=== PATIENT | female | born 1960 | race Two or more races ===

== ENCOUNTER 2020-05-28 03:04 | Inpatient (IN) | payer OTHER ==
[~2020-05-28] VITALS: Ht 160 cm; Wt 185.0 kg
[2020-05-28] MEDS ORDERED: TRIUMEQ TABLET1 EACH (03:16)
[2020-05-28] MEDS ORDERED: LEVOTHYROXINE25 MC2 (03:16)
[2020-05-28] MEDS ORDERED: LIPITOR40 M1 ×2 (03:16→03:17)
[2020-05-28] MEDS ORDERED: NEURONTIN800 MG (03:17)
[2020-05-28] MEDS ORDERED: SINGULAIR4 M1 (03:17)
--- NOTE | 2020-05-28 03:37 | NUR ---
SE RECIBE PTE ALERTA Y ORIENTADA POR SANA. PT REFIERE TENER CELULITIS EN AMBAS PIERNAS DESDE HACE 3 SEMANAS. PTE INDICA JONO ESTADO HOSPITALIZADA DESDE EL [place] Y JONO EXONERADO EN LA TARDE DE EUGENIE. SE OBSERVA A PTE CON POBRE ASEO PERSONAL, MAL OLOR CORPORAL Y PTE VERVALIZA HABERSE ORINADO EN JONI PANTALONES.
--- NOTE | 2020-05-28 05:21 | NUR ---
SE RECIBE FEMINA ALERTA Y ORIENTADA POR SANA ESFERAS, EN JANET CON BARANDAS SEGURAS Y ELEVADAS. SE MARIAH MUESTRAS DE LABORATORIO ORDENADAS. SE CANALIZA CON AREA DE VENOPUNCION MARK DE EDEMA O ENROJECIMIENTO. SE CANALIZA CON AREA DE VENOPUNCION MARK DE EDEMA O ENROJECIMIENTO. SE ADMINISTRAN MEDICAMENTOS ORDENADOS.
--- NOTE | 2020-05-28 07:01 | NUR ---
SE RECIBE PTE ALERTA Y ORIENTADA X3 EN JANET CON BARANDAS ELEVADAS. PTE CON H/L EL CUAL SE ENCUENTRA PATENTE Y MARK DE EDEMA. PTE PENDIENTE A DOPPLER PENDIENTE A REALIZAR.
--- NOTE | 2020-05-28 15:00 | NUR ---
SE RECIBE PTE ALERTA Y ORIENTADA X 3 ESFERAS EN CAMA. PRESENTANDO BUEN PATRON RESPIRATORIO. H/L EN BRAZO BERTHA AREA MARK DE EDEMA Y ERITEMA. PENDIENTE CONSULTA CON DR.ESTEBAN BLANDON. SE MANTIENE EN OBSERVACION.
== END 2020-05-29 09:30 | disposition left against medical advice (07) | DRG 603 ==
LOC: ER 03:04 → SEC-K 05-29 00:23
PROVIDERS: ADMIT Internal Medicine; ATTEND Internal Medicine
DX: L03.115 Cellulitis of right lower limb (principal); L03.116 Cellulitis of left lower limb; M19.90 Unspecified osteoarthritis, unspecified site; G62.9 Polyneuropathy, unspecified; Z21 Asymptomatic human immunodeficiency virus [HIV] infection status; Z20.822 Contact with and (suspected) exposure to COVID-19